=== PATIENT | female | born 1945 | race Two or more races ===

== ENCOUNTER 2017-08-30 07:40 | Day surgery (SDC) | payer MEDICARE, OTHER ==
[2017-08-30] VITALS (8 sets, daily range): BP systolic 117–150; BP diastolic 64–82
[~2017-08-30] VITALS: Ht 162.6 cm; Wt 76.2 kg
[~2017-08-30 07:40] MED LIST: Bupivacaine 0.25% Inj 30ml INJ ONE; Clindamycin 600mg 50 ML IV ONE; EPINEPHrine 1mg/1ml Amp ONE; Kenalog-40 1ml Vial ONE; Ketorolac 30mg Inj ONE; Lidocaine 1% 10mg/ml/EPI 0.01mg/ml 50ml INJ ONE; celeBREX 200mg Cap **SURGERY PATIENTS ONLY ORAL ONE; oxyCONTIN 20mg tab ORAL ONE
[2017-08-30] MEDS ORDERED: ASPIR 8181 MG ORAL (08:45)
[2017-08-30] MEDS ORDERED: MECLIZINE HCL25 M1 ORAL (08:45)
[2017-08-30] MEDS ORDERED: TRAMADOL HCL100 M2 ORAL (08:45)
[2017-08-30] MEDS ORDERED: METFORMIN HCL500 M5 PO (08:45)
[2017-08-30] MEDS ORDERED: PRAVASTATIN SOD20 M1 ORAL (08:45)
[2017-08-30] MEDS ORDERED: LOSARTAN POTASS25 M1 PO (08:45)
[2017-08-30] MEDS ORDERED: METOPROLOL SUCC50 MG ORAL (08:45)
--- NOTE | 2017-08-30 08:48 | Operative Note - PDOC ---
Operative Note Operative Note Pre-op Diagnosis: right knee medial and lateral miniscus tear Procedure: right knee arthroscopy Post-op Diagnosis: same as pre-op plus Operative Findings: consistent w/pre-op dx studies Anesthesia: MAC Specimen: none Complications: none Condition: stable Estimated Blood Loss: none Implant(s) used?: No ISIS GARCIA Aug 30, 2017 08:48
--- NOTE | 2017-08-30 08:48 | Pre-Procedure Note/Attestation ---
Pre-Procedure Note/Attestation Complete Prior to Procedure Planned Procedure: right Procedure Narrative: knee arthroscopy, medial and lateral menisectomy Indications for Procedure Pre-Operative Diagnosis: right knee medial and lateral miniscus tear Attestation I attest that I discussed the nature of the procedure; its benefits; risks and complications; and alternatives (and the risks and benefits of such alternatives ), prior to the procedure, with the patient (or the patient's legal public relations representative). I attest that, if there was a reasonable possibility of needing a blood transfusion, the patient (or the patient's legal public relations representative) was given the [facility] standardized written summary, pursuant to the [place] Blood Safety Act ([place] Health and Safety Code # 1645, as amended). I attest that I re-evaluated the patient just prior to the surgery and that there has been no change in the patient's H&P, except as documented below: ISIS GARCIA Aug 30, 2017 08:48
[2017-08-30] MEDS ORDERED: Tylenol #3 tab (300mg/30mg) ORAL PRN (09:00)
[2017-08-30] MEDS ORDERED: Norco 5mg/325mg tab ORAL PRN (09:00)
[2017-08-30] MEDS ORDERED: HYDROmorphone 1mg/ml Carpuject SUBQ PRN (09:00)
[2017-08-30] MEDS ORDERED: D5 1/2NS 1,000 ML IV SCH (09:00)
[2017-08-30] MEDS ORDERED: Lidocaine 1% 10mg/ml/Epi 0.005mg/ml 30ml vial INJ ONE (09:18)
[2017-08-30] MEDS ORDERED: Bupivacaine 0.25% Inj 30ml INJ ONE (09:18)
[2017-08-30] MEDS ORDERED: Morphine Sulfate PF 0 ML ONE (09:18)
[2017-08-30] MEDS ORDERED: Ketorolac 30mg Inj ONE (09:18)
[2017-08-30] MEDS ORDERED: Kenalog-40 1ml Vial ONE (09:18)
[2017-08-30] MEDS ORDERED: Propofol 200mg/20ml IV ONE (09:48)
[2017-08-30] MEDS ORDERED: fentaNYL 100 mcg/2 mL IV ONE (10:00)
[2017-08-30] MEDS ORDERED: Metoclopramide 10mg/2ml Inj ONE (10:00)
[2017-08-30] MEDS ORDERED: LR 1000ml ONE (10:00)
[2017-08-30] MEDS ORDERED: Lidocaine 1% MPF 10mg/ml 5ml ONE (10:00)
[2017-08-30] MEDS ORDERED: NS Irrig 2000ml IRRIG ONE (10:00)
[2017-08-30] MEDS ORDERED: Midazolam 2mg/2ml Inj ONE (10:00)
--- NOTE | 2017-08-30 10:27 | Anethesia Preoperative Eval ---
Anesthesia Pre-op PMH/ROS General Date of Evaluation: Aug 30, 2017 Time of Evaluation: 09:55 Anesthesiologist: ermelinda ASA Score: ASA 2 Mallampati Score Class I : Soft palate, uvula, fauces, pillars visible Class II: Soft palate, uvula, fauces visible Class III: Soft palate, base of uvula visible Class IV: Only hard plate visible Mallampati Classification: Class II Anesthesia History: none Family History: no anesthesia problems Allergies: Coded Allergies: MORPHINE (Verified Allergy, Severe, dizziness, 08/29/17) CODEINE (Verified Allergy, Mild, upset stomach, 08/29/17) PENICILLINS (Verified Allergy, Unknown, 08/29/17) Medications: see eMAR Past Medical History Cardiovascular: Reports: HTN Pulmonary: Denies: asthma, COPD, JOHN, other Gastrointestinal/Genitourinary: Denies: GERD, CRI, ESRD, other Neurologic/Psychiatric: Reports: depression/anxiety, Denies: dementia, CVA, TIA, other Endocrine: Reports: DM HEENT: Reports: cataract (L), Denies: cataract (R), glaucoma, TETLIN (L), TETLIN (R), other Hematology/Immune: Denies: anemia, DVT, bleeding disorder, other Musculoskeletal/Integumentary: Reports: OA Other: other - vertigo PSxH Narrative: cataract extraction; sister denies any other surgeries. denies anesthetic complication Anesthesia Pre-op Phys. Exam Physician Exam Last Vital Signs Date Time Temp Pulse Resp B/P (MAP) Pulse Ox O2 Delivery O2 Flow Rate FiO2 08/30/17 08:46 98.5 72 18 141/78 99 Room Air Constitutional: NAD Neurologic: CN 2-12 intact Cardiovascular: RRR Respiratory: CTA Gastrointestinal: S/NT/ND Airway Exam Mallampati Classification 2 Mallampati Score: Class II MO: full ROM: full Dentures: no upper, no lower Anesthesia Pre-op A/P Studies Pre-op Studies: EKG - sr Risk Assessment & Plan Assessment: sister translated. denies cp/sob Plan: general Status Change Before Surgery: No Pre-Antibiotics Drug: cleocin Given Within 1 Hr of Incision: Yes Time Given: 09:58 DAVION BILLINGSLEY CRNA Aug 30, 2017 10:27
[2017-08-30] MEDS ORDERED: fentaNYL 100 mcg/2 mL IV PRN (10:30)
--- NOTE | 2017-08-30 11:09 | Immediate Post-Op Evaluation ---
Immediate Post-Op Evalulation Immediate Post-Op Evalulation Procedure: right knee arthroscopy with medial and lateral menisectomy Date of Evaluation: Aug 30, 2017 Time of Evaluation: 10:40 IV Fluids: 500 Blood Pressure Systolic: 122 Blood Pressure Diastolic: 67 Pulse Rate: 82 Respiratory Rate: 14 O2 Sat by Pulse Oximetry: 98 Temperature (Fahrenheit): 98.0 Nausea: No Vomiting: No Complications none Patient Status: awake, reacts Hydration Status: adequate Drug: cleocin Given Within 1 Hr of Incision: Yes Time Given: 09:57 DAVION BILLINGSLEY CRNA Aug 30, 2017 11:09
--- NOTE | 2017-08-30 12:42 | 48 Hour Post Anesthesia Eval ---
Post Anesthesia Evaluation Procedure: right knee arthroscopy with medial and lateral menisectomy Date of Evaluation: Aug 30, 2017 Time of Evaluation: 12:42 Blood Pressure Systolic: 140 0: 80 Pulse Rate: 78 Respiratory Rate: 14 O2 Sat by Pulse Oximetry: 99 Airway: patent Nausea: No Vomiting: No Hydration Status: adequate Cardiopulmonary Status: stable Mental Status/LOC: patient returned to baseline Follow-up Care/Observations: na Post-Anesthesia Complications: none Follow-up care needed: N/A DAVION BILLINGSLEY CRNA Aug 30, 2017 12:42
--- NOTE | 2017-08-30 17:45 | Operative Note - Dictated ---
DATE OF OPERATION: 08/30/2017 PREOPERATIVE DIAGNOSES: 1. Right knee patellofemoral lateral arthritis. 2. Right knee lateral meniscus tear, possible medial meniscus tear. POSTOPERATIVE DIAGNOSES: 1. Right knee patellofemoral lateral arthritis. 2. Right knee lateral meniscus tear, possible medial meniscus tear. PROCEDURES: 1. Right knee arthroscopic partial medial and lateral meniscectomy. 2. Chondroplasty, lateral femoral condyle. 3. Synovectomy, lateral and patellofemoral and medial compartments. SURGEON: Jake Wiseman M.D. ANESTHESIA: MAC with local. INDICATION FOR PROCEDURE: The patient is a pleasant female, who has had acute onset of right knee pain. She has evidence of [id number] arthritis. She had an MRI, which showed a meniscal tear. She had localized pain along the medial and lateral joint line consistent with meniscal pathology. She elected to undergo right knee arthroscopy and possible medial and lateral meniscectomy understanding that will address her knee pain from the meniscus and may not improve any of her symptoms from the chondral damage and need for additional treatment in the future were discussed with the patient along with additional risks. DESCRIPTION OF PROCEDURE: After informed consent was obtained, the patient was brought to the operating room. The patient was placed under monitored anesthesia control. Right leg was prepped and draped in a sterile manner. Time-out was performed. 20 mL of 0.25% Marcaine plain injected into the knee. Portal sites were injected with 1% lidocaine with epinephrine. Inferolateral stab incisions were then made. Trocar was introduced into the patellofemoral compartment. There, she had significant hypertrophic synovial tissue in retropatellar space area. Medial gutter was entered and free of any loose bodies. Medial compartment was entered. Medial working portal was established. There was some fraying of the posterior horn of the medial meniscus. A partial meniscectomy using a shaver was performed. There was no significant chondral damage. Intercondylar notch was entered. There was hypertrophic ligamentum mucosa, which was debrided to better visualize the ACL and the synovectomy was extended to the lateral compartment to better visualize and gain access to the lateral compartment. Once the lateral compartment was entered, there was a tear of the anterior horn of the lateral meniscus. Partial lateral meniscectomy was performed. With hyperflexion, there were chondral flaps in the posterior medial and lateral femoral condyle. Gentle chondroplasty was performed. Once that was completed, the camera was repositioned in the patellofemoral compartment and synovectomy was completed to better visualize the patellofemoral compartment, which showed grade 4 chondral damage in the patella. At this point, the camera was removed. Portal sites were closed with 3-0 Monocryl sutures. Steri-Strips and sterile dressing were applied. The patient was awoken and taken to recovery room with stable vital signs. ESTIMATED BLOOD LOSS: Minimal. COMPLICATIONS: None. SPECIMENS: None. IMPLANTS: None. Jake Wiseman M.D. DR: LEONEL JOB#: [id number] CC: WALT
== END 2017-08-30 13:30 | disposition home or self-care (01) ==
LOC: SDS 07:40
DX: S83.281A Other tear of lateral meniscus, current injury, right knee, initial encounter (principal); M17.11 Unilateral primary osteoarthritis, right knee; E11.9 Type 2 diabetes mellitus without complications; I10 Essential (primary) hypertension; F41.9 Anxiety disorder, unspecified; F32.9 Major depressive disorder, single episode, unspecified; Z88.6 Allergy status to analgesic agent; Z88.0 Allergy status to penicillin
CPT/HCPCS: 29876; 29880; 82962; J1885; J2250; J2405; J2704; J2765; J3010; J3301; J3490; J7120; 94003; 94150; S0077